=== PATIENT | male | born 1995 | race Caucasian/White ===

== ENCOUNTER 2017-11-04 16:22 | Emergency (ER) | payer OTHER ==
[2017-11-04] MEDS ORDERED: traMADol HCl 50 MG TAB ONE (16:51)
--- NOTE | 2017-11-04 16:54 | RAD ---
THREE VIEWS OF THE RIGHT HAND: 11/04/17 COMPARISON: None. HISTORY: Jammed thumb playing basketball, trauma, pain. FINDINGS: The first metacarpophalangeal joint is dislocated. The first proximal phalanx is located lateral to t he head of the first metacarpal. Angulation limits assessment at the first carpometacarpal joint. Pos t reduction imaging is advised. IMPRESSION: Dislocated first metacarpophalangeal joint. Post reduction imaging recommended. POS: [facility]
--- NOTE | 2017-11-04 17:35 | RAD ---
TWO VIEWS OF THE RIGHT THUMB 11/04/17 COMPARISON: Right hand radiograph 11/04/17. HISTORY: Evaluate thumb following reduction. FINDINGS: The previously noted dislocation of the first metacarpophalangeal joint has been reduced. No acute fr acture. IMPRESSION: Interval reduction of the first metacarpophalangeal joint. POS: [facility]
== END 2017-11-04 17:50 ==
LOC: NAV ERS 16:22
DX: S63.114A Dislocation of metacarpophalangeal joint of right thumb, initial encounter (principal); W21.05XA Struck by basketball, initial encounter
CPT/HCPCS: 26641